=== PATIENT | female | born 1955 | race African-American/Black ===

== ENCOUNTER 2017-05-21 08:51 | Day surgery (SDC) | payer MEDICARE, OTHER ==
[~2017-05-21] VITALS: Ht 149.9 cm; Wt 86.0 kg
[2017-05-21] VITALS (9 sets, daily range): BP systolic 107–131; BP diastolic 56–69; PULSE 68–79; TEMP 97.9–98.3
[~2017-05-21 08:51] MED LIST: ANTIVERT 25MG25 MG PO; ASPIRIN 81M81 MG/TA2 PO; CALCIUM 500 + D1 TA1 PO; GLUCOPHAGE1000 MG PO; MICARDIS HCT 121 TAB PO; NEXIUM 40MG40 MG PO; ULTRAM 50MG TAB50 MG; ZOCOR 20MG20 MG PO
[2017-05-21 09:31] LABS: MEAN CELL VOLUME 90 fl (80.0-100.0); MEAN CORPUSCULAR HGB CONC 33 g/dl (33.0-37.0); MEAN PLATELET VOLUME 8.6 fl (7.4-10.4); PLATELET COUNT 317 K/mm3 (130-400); RED BLOOD COUNT 3.74 M/mm3 (4.10-5.30); REDCELL DISTRIBUTION WIDTH-CV 13.7 % (11.5-14.5)
[2017-05-21 09:32] LABS: HEMATOCRIT 33.6 % (37.0-47.0); MEAN CORPUSCULAR HEMOGLOBIN 29 pg (27.0-31.0)
[2017-05-21] MEDS ORDERED: RESTORIL 1515 MG/CAP PO (09:39)
[2017-05-21] MEDS ORDERED: MASON NATURAL2000 IU PO (09:40)
[2017-05-21 09:41] LABS: CREATININE, serum 1.23 mg/dL (0.52-1.25); POTASSIUM 3.7 mmol/L (3.4-5.0)
[2017-05-21] MEDS ORDERED: OMEGA-3 1000 MG1 CAP PO (09:41)
[2017-05-21] MEDS ORDERED: MULTIPLE VITAMI1 CAP PO (09:41)
[2017-05-21 09:56] LABS: PROTHROMBIN TIME 11.2 SECONDS (9.7-12.8)
[2017-05-21] MEDS ORDERED: GLUCOPHAGE1000 MG PO (13:04)
== END 2017-05-21 13:50 | disposition home or self-care (01) ==
LOC: COL.CAR 08:51
PROVIDERS: Internal Medicine Interventional Cardiology
DX: R07.89 Other chest pain (principal); R94.39 Abnormal result of other cardiovascular function study; I10 Essential (primary) hypertension; E11.42 Type 2 diabetes mellitus with diabetic polyneuropathy; E78.5 Hyperlipidemia, unspecified; Z79.82 Long term (current) use of aspirin; Z79.84 Long term (current) use of oral hypoglycemic drugs; Z82.49 Family history of ischemic heart disease and other diseases of the circulatory system; Z83.3 Family history of diabetes mellitus
CPT/HCPCS: J2250; J3010; Q9967